=== PATIENT | female | born 1975 | race Caucasian/White ===

== ENCOUNTER → 2016-11-14 | Outpatient (CLI) | payer MEDICAID ==
[~2016-11-14] MED LIST: KLONIPIN PO; LEXAPRO 20 MG T20 MG PO; MECLIZINE HYDRO25 M2 PO; NORCO 325 MG-51 TAB PO; PENICILLIN VK250 MG PO; PYRIDIUM 200MG200 MG PO; ROPINIROLE HYDRO1 M1 PO; SEPTRA DS 800 M1 TAB PO; VALTREX PO; VICODIN1 TAB PO; ZOFRAN ODT4 MG PO
--- NOTE | 2016-11-14 18:42 | RADIOLOGY REPORT PS360 ---
EXAM: LUMBAR SPINE-2 TO 3 VIEWS HISTORY: Low back pain,unspecified back pain with sciatica COMPARISON: None FINDINGS: There is 5 mm anterolisthesis of L5 on S1.. This appears to have slightly increased since a prior CT abdomen of 09/09/2015. Facet arthritic changes are present at that level. Mild degenerative disc disease L5-S1. No fracture or dislocation. No lytic or blastic change. There is partial lumbar sedation of S1. IMPRESSION: Mild degenerative disc disease and facet arthritic changes with minimal anterolisthesis of L5 on S1
== END ==
LOC: RAD 17:37
DX: M54.5 Low back pain (principal)

== ENCOUNTER → 2017-07-26 | Emergency (ER) | payer SELFPAY ==
[~2017-07-26] VITALS: Ht 157.5 cm; Wt 74.8 kg
[~2017-07-26] MED LIST changes: +BROMFED DM COU118 ML PO; +FLONASE 50 MCG16 GM; +MEDROL 4MG. DOSE4 MG PO; +ZITHROMAX Z PA250 MG PO
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
[2017-07-26 13:45] VITALS: BP 154/106
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
--- OUTSIDE RECORDS SUMMARY | 2017-07-31 20:00 | External Medical Summary Rpt | CCD ---
Demographics Preferred Language Central African Marital Status Unknown Rastafari Affiliation Unknown Race Unknown Ethnic Group Unknown Author Author , SHAY DAY Address Unknown Phone Immunization No patient found.
--- OUTSIDE RECORDS SUMMARY | 2017-07-31 20:00 | External Medical Summary Rpt | CCD ---
Demographics Preferred Language Slovenian Marital Status Unknown Denominational Affiliation Unknown Race Unknown Ethnic Group Unknown Author Author , SHAY DAY Address Unknown Phone Immunization No patient found.
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
== END ==
LOC: ER 12:46
DX: H30.91 Unspecified chorioretinal inflammation, right eye (principal); H54.40 Blindness, one eye, unspecified eye; S20.211A Contusion of right front wall of thorax, initial encounter; Y92.414 Local residential or business street as the place of occurrence of the external cause